=== PATIENT | male | born 1940 | race Caucasian/White ===

== ENCOUNTER → 2017-05-05 | Outpatient (CLI) | payer OTHER, MEDICARE ==
[~2017-05-05] MED LIST: AMLO5 PO; ASPI81CH PO; B Complete1 EACH PO; CHOL10002; DIPH50 PO; DIPY75 PO; FAMO20 PO; FISH1000 PO; GLIP10; GLIP10ER PO; GLIP5; LISI20 PO; LOSHYD100 PO; METF500; METF500 PO; METO50ER; OMEP20ER PO; PRED20 PO; PSEU30; SUDOGEST; TAMS.4ER PO; TEMA30 PO
== END | disposition home or self-care (01) ==
LOC: LAB 17:33
DX: L01.09 Other impetigo (principal)
CPT/HCPCS: 87070; 87205

== ENCOUNTER → 2020-01-15 | Outpatient (CLI) | payer MEDICARE, BC | END | disposition home or self-care (01) | LOC: LAB SHORT 10:54 → LAB 10:54 | DX: L03.211 Cellulitis of face (principal) | CPT/HCPCS: 87070; 87077; 87186; 87205 ==

== ENCOUNTER 2020-05-22 08:43 | Inpatient (IN) | payer MEDICARE, BC ==
[~2020-05-22] VITALS: Ht 180.3 cm; Wt 102.1 kg
[2020-05-22] MEDS ORDERED: ASPIR 8181 M1 PO (09:07)
[2020-05-22] MEDS ORDERED: AMLO5 PO (09:09)
[2020-05-22] MEDS ORDERED: CLOP75 PO (09:09)
[2020-05-22] MEDS ORDERED: PIOG15 PO (09:10)
[2020-05-22] MEDS ORDERED: PSEU120ER PO (09:11)
[2020-05-22] MEDS ORDERED: HYDSUL200 PO (09:13)
[2020-05-22 09:38] LABS: BASOPHILS ABSOLUTE AUTO 0.03 K/mm3 (0.00-0.23); BASOPHILS PERCENT AUTO 0 % (0-2); EOSINOPHILS ABSOLUTE AUTO 0.07 K/mm3 (0.00-0.68); EOSINOPHILS PERCENT AUTO 1 % (0-6); Hematocrit 33.1 % (37.0-53.0); Hemoglobin 10.9 g/dL (13.5-17.5); IMMATURE GRAN ABSOLUTE AUTO 0.04 K/mm3 (0.00-0.10); IMMATURE GRAN PERCENT AUTO 0 % (0-1); LYMPHOCYTES ABSOLUTE AUTO 0.55 K/mm3 (0.84-5.20); LYMPHOCYTES PERCENT AUTO 5 % (21-46); MONOCYTES ABSOLUTE AUTO 0.95 K/mm3 (0.16-1.47); MONOCYTES PERCENT AUTO 9 % (4-13); Mean Corpuscular HGB 29.5 pg (26.0-34.0); Mean Corpuscular HGB Conc 32.9 g/dL (31.5-36.5); Mean Corpuscular Volume 90 fL (80-100); Mean Platelet Volume 10.6 fL (9.1-12.4); NEUTROPHILS ABSOLUTE AUTO 9.57 K/mm3 (1.96-9.15); NEUTROPHILS PERCENT AUTO 85 % (41-73); Platelet Count 232 K/mm3 (150-400); RDW Coefficient Variation 15.7 % (11.7-14.2); RDW Standard Deviation 51.8 fL (35.1-46.3); White Blood Cell Count 11.21 K/mm3 (4.00-11.30)
[2020-05-22 09:48] LABS: Albumin, Blood 3.1 g/dL (3.4-5.0); Albumin/Globulin Ratio 0.7 (0.8-1.8); Bilirubin, Total 0.9 mg/dL (0.1-1.0); Calcium, Blood 8.9 mg/dL (8.5-10.1); Creatinine, Blood 6.3 mg/dL (0.60-1.20); Globulin, Blood 4.3 g/dL (2.2-4.0); Potassium, Blood 5.2 mmol/L (3.5-5.5); Total Protein, Blood 7.4 g/dL (6.4-8.2)
[2020-05-22 09:55] LABS: Source, Urine Clean Catch
[2020-05-22 10:28] LABS: Appearance, Urine Turbid (Clear); Bilirubin, Urine Neg (Neg); Blood, Urine 5+ (Neg); Color, Urine Brown (P-Yellow); Glucose Qualitative, Urine Neg (Neg); Ketones, Urine 1+ (Neg); Leukocyte Esterase, Urine 1+ (Neg); Nitrite, Urine Pos (Neg); Protein, Urine 4+ (Neg); Specific Gravity, Urine 1.015 (1.003-1.022); Urobilinogen, Urine NORM (Normal); pH, Urine 6.5 (5.0-8.0)
[2020-05-22 10:52] LABS: Bacteria Rare /hpf; Red Blood Cells, Urine TNTC /hpf (0-2); Squamous Epithelial Cells Few /hpf (Few)
[2020-05-22] MEDS ORDERED: PSEUDOEPHEDRINE30 M3 PO (12:11)
[2020-05-22] MEDS ORDERED: MINOCYCLINE HC PO (12:12)
[2020-05-22] MEDS ORDERED: ACTOS30 MG PO (12:12)
[2020-05-22] MEDS ORDERED: TEMAZEPAM PO (12:14)
[2020-05-22] MEDS ORDERED: LOSARTAN POTAS100 M1 PO (12:14)
[2020-05-22] MEDS ORDERED: Hydroxychloroq200 MG PO (12:14)
[2020-05-22] MEDS ORDERED: METFORMIN HCL1000 M6 PO (12:15)
[2020-05-22 12:18] LABS: Hematocrit 33.4 % (37.0-53.0)
--- NOTE | 2020-05-22 16:41 | NUR ---
PT AOX4; CALLS APPROPRIATELY. PT ADMITTED FOR ACUTE ON CHRONIC KIDNEY INJURY. PT CAME IN WITH WEAKNESS, ABD PAIN, NAUSEA, ABD DISTENTION, DECREASED URINE OUTPUT, CONSTIPATION X5 DAYS, AND BILAT LOWER EDEMA. PT HAD A ABD CT, AND SHOWED 7L OF URINE. [place] PLACED ON ED- 6300 ML URINE OUT PER KIARA SCHMID. PT LIVES WITH AT HOME. PT STATED HE HAS BEEN HAVING A HARD TIME URINATING FOR THE PAST WEEK, AND HE HAS SEEN DR DERAS 5DAYS AGO. 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 HE STATED THAT THE DOCTOR TOLD HIM THAT DIABETES IS PROBABLY CAUSING HIM TO HAVE KIDNEY PROBLEMS. PT DENIES PAIN ON ABD OR ANYWHEERE. PT C/O GENERALIZED WEAKNESS; BED ALARM IS ON AND ENCOURAGE THE USE OF CALL LIGHT. PT IS 1-2 P ASSIST TO BSC. PT IS RECEIVING CONT NS FLUID @125 ML/HR. PT ORIENTED IN THE ROOM AND CALL LIGHT WITHIN REACH
--- NOTE | 2020-05-22 18:34 | NUR ---
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 SHE WAS WONDERING IF WE COULD ADDRESS THIS TO THE DOCTOR. PT DENIES ANY CP OR PRESSURE. NO APPARENT DISTRESS AT THIS TIME.
[2020-05-22 19:59] LABS: Albumin, Blood 2.8 g/dL (3.4-5.0); Anion Gap 9 mmol/L (6-16); Blood Urea Nitrogen 75 mg/dL (8-24); Bun/Creatinine Ratio 15.8 (12.0-20.0); CO2, Blood 21 mmol/L (21-32); Calcium, Blood 8.7 mg/dL (8.5-10.1); Chloride, Blood 108 mmol/L (98-108); Creatinine, Blood 4.75 mg/dL (0.60-1.20); Glomerular Filtration Rate 13 (60-); Glucose, Blood 198 mg/dL (70-99); Phosphorus, Blood 4.6 mg/dL (2.5-4.9); Potassium, Blood 4.4 mmol/L (3.5-5.5); Sodium, Blood 138 mmol/L (136-145)
[2020-05-23 05:08] LABS: BASOPHILS ABSOLUTE AUTO 0.03 K/mm3 (0.00-0.23); BASOPHILS PERCENT AUTO 0 % (0-2); EOSINOPHILS ABSOLUTE AUTO 0.35 K/mm3 (0.00-0.68); EOSINOPHILS PERCENT AUTO 4 % (0-6); Hematocrit 28.8 % (37.0-53.0); Hemoglobin 9.5 g/dL (13.5-17.5); IMMATURE GRAN ABSOLUTE AUTO 0.02 K/mm3 (0.00-0.10); IMMATURE GRAN PERCENT AUTO 0 % (0-1); LYMPHOCYTES ABSOLUTE AUTO 0.87 K/mm3 (0.84-5.20); LYMPHOCYTES PERCENT AUTO 10 % (21-46); MONOCYTES ABSOLUTE AUTO 1.02 K/mm3 (0.16-1.47); MONOCYTES PERCENT AUTO 11 % (4-13); Mean Corpuscular HGB 29.5 pg (26.0-34.0); Mean Corpuscular Volume 89 fL (80-100); Mean Platelet Volume 10.4 fL (9.1-12.4); NEUTROPHILS ABSOLUTE AUTO 6.82 K/mm3 (1.96-9.15); NEUTROPHILS PERCENT AUTO 75 % (41-73); Platelet Count 195 K/mm3 (150-400); RDW Coefficient Variation 15.4 % (11.7-14.2); RDW Standard Deviation 50.8 fL (35.1-46.3); Red Blood Cell Count 3.22 M/mm3 (4.30-5.90); White Blood Cell Count 9.11 K/mm3 (4.00-11.30)
--- NOTE | 2020-05-23 05:36 | NUR ---
SHIFT SUMMARY: PATIENT IS A&OX3, VSS, UP TO THE BATHROOM WITH ASSIST OF TWO AND FWW MULTIPLE TIMES FOR BM'S, LARGE AMTS OF FLATUS. STAS IS PATENT, NO REPORTS OF PAIN. PATIENT WAS GIVEN SCHEDULED RESTORIL FOR SLEEP AND HAD DIFFICULTY FOLLOWING DIRECTS WHEN AMB. TO BATHROOM. BED ALARM IS ON FOR SAFETY.
[2020-05-23 05:43] LABS: Albumin, Blood 2.7 g/dL (3.4-5.0); Albumin/Globulin Ratio 0.8 (0.8-1.8); Bilirubin, Total 0.4 mg/dL (0.1-1.0); Bun/Creatinine Ratio 17.9 (12.0-20.0); Calcium, Blood 8.1 mg/dL (8.5-10.1); Creatinine, Blood 3.52 mg/dL (0.60-1.20); Globulin, Blood 3.5 g/dL (2.2-4.0); Magnesium, Blood 2.5 mg/dL (1.6-2.4); Potassium, Blood 4.2 mmol/L (3.5-5.5); Total Protein, Blood 6.2 g/dL (6.4-8.2)
--- NOTE | 2020-05-23 17:02 | NUR ---
HE JUST WOKE UP FROM A NAP IRRITABLE AND PAINFUL. HE WAS FED UP WITH THE BED AND THE CHAIR. HE DIDN'T WANT TO AMBULATE IN THE SUERO BUT DID AMBULATE SEVERAL CIRCLES IN THE ROOM WITH WALKER GAITBELT AND 1 ASSIST. HE HAD BEEN SLIGHTLY INCONTINENT OF STOOL IN THE BED BUT COULDN'T DO ANYMORE IN THE TOILET. HE WAS WASHED. HE ALSO WASHED HIS FACE AT THE SINK AND COMBED HIS HAIR AGAIN. HE IS DISTRESSED BY UNKEPT HAIR. HE CMPLAINS SO MUCH OF PAIN AT HIS RECTUM THAT I LOOKED AGAIN. NOTHING WAS SEEN WHEN HE WAS STANDING UP AND BENDING OVER OR DURING HIS BEDBATH BUT I HAD HIM LAY ON HIS R SIDE AND SPREAD HIS CHEEKS APART,WHICH ALSO HURT HIM AND SAW AN ULCERATION LESS THAN DIME SIZE ON HIS INNER R BUTTOCK NEAR THE ANUS. I APPLIED THE BLUE TOP CREAM. IT SOOTHES HIM FOR AWHILE. HE STILL DOES NOT USE HIS CALL LIGHT OR ALWAYS FOLLOW DIRECTIONS. HE HAS ANXIETY AND MAYBE SOME MINOR CONFUSION. [place] PATENT WITH GOOD URINE OUTPUT. SCD'S REFUSED. HE SAYS THEY ARE TOO HOT AND IT BOTHERS HIS NEUROPATHY IN HIS FEET. TEMP 100.1 THIS AFTERNOON DURING HIS NAP. HE ALWAYS WEARS HIS CPAP WHEN HE IS IN BED. NO ALARMS ON CONTINUOUS BIOX. HIS VISITED FOR ABOUT 40 MIN.
[2020-05-24 04:55] LABS: BASOPHILS ABSOLUTE AUTO 0.04 K/mm3 (0.00-0.23); BASOPHILS PERCENT AUTO 1 % (0-2); EOSINOPHILS ABSOLUTE AUTO 0.31 K/mm3 (0.00-0.68); EOSINOPHILS PERCENT AUTO 4 % (0-6); Hemoglobin 9.6 g/dL (13.5-17.5); IMMATURE GRAN ABSOLUTE AUTO 0.02 K/mm3 (0.00-0.10); IMMATURE GRAN PERCENT AUTO 0 % (0-1); LYMPHOCYTES ABSOLUTE AUTO 1.05 K/mm3 (0.84-5.20); LYMPHOCYTES PERCENT AUTO 12 % (21-46); MONOCYTES ABSOLUTE AUTO 0.93 K/mm3 (0.16-1.47); MONOCYTES PERCENT AUTO 11 % (4-13); Mean Corpuscular HGB 29.2 pg (26.0-34.0); Mean Corpuscular HGB Conc 33.1 g/dL (31.5-36.5); Mean Corpuscular Volume 88 fL (80-100); NEUTROPHILS ABSOLUTE AUTO 6.15 K/mm3 (1.96-9.15); NEUTROPHILS PERCENT AUTO 72 % (41-73); Platelet Count 210 K/mm3 (150-400); RDW Coefficient Variation 15.4 % (11.7-14.2); Red Blood Cell Count 3.29 M/mm3 (4.30-5.90)
[2020-05-24 05:21] LABS: Albumin, Blood 2.6 g/dL (3.4-5.0); Albumin/Globulin Ratio 0.7 (0.8-1.8); Bilirubin, Total 0.6 mg/dL (0.1-1.0); Bun/Creatinine Ratio 19.9 (12.0-20.0); Calcium, Blood 8.1 mg/dL (8.5-10.1); Creatinine, Blood 2.11 mg/dL (0.60-1.20); Globulin, Blood 3.7 g/dL (2.2-4.0); Potassium, Blood 4.2 mmol/L (3.5-5.5); Total Protein, Blood 6.3 g/dL (6.4-8.2)
--- NOTE | 2020-05-24 06:15 | NUR ---
SHIFT SUMMARY: PATIENT IS A&OX4 BUT FORGETFULL AT TIMES. DOES NOT FOLLOW DIRECTIONS AT TIMES DURING TRANFER TO BATHROOM. STAS IS PATENT FOR YELL URINE AND ARE VSS. CPAP IS WORN DURING SLEEP, NO DESTATURATIONS ARE OBSERVED DURING SLEEP. PATIENT REQUESTED RESTORIL FOR SLEEP, MEDICATION WAS GIVE WITH GOOD EFFECT.
--- NOTE | 2020-05-24 08:24 | NUR ---
WAS NOTIFIED THAT PT WOULD LIKE TO LEAVE AMA. NOTIFIED ZA, FIELD SERVICE POULTRY TECHNICIAN WHO SAID THAT SHE WOULD NOTIFY TO GET THE PROCESS STARTED.
[2020-05-24] MEDS ORDERED: SENN187 PO (11:27)
--- NOTE | 2020-05-24 13:06 | NUR ---
DISCHARGE SUMMARY PT A/O X3 AND HAS MOMENTS OF CONFUSION. PT ADMITTED FROM ACUTE ON CHRONIC KIDNEY INJURY. MCCLELLAND WAS PLACED IN THE ED AFTER IT WAS FOUND THAT THE PT WAS RETAINING OVER 7 LITERS OF URINE IN HIS BLADDER. PT VERY ANXIOUS AND EAGER TO LEAVE DURING THE SHIFT. WAS CONVINCED NOT TO LEAVE AMA. WAS SEEN BY DR. CHANCE AND INSTRUCTED TO LEAVE IN [place] AND TO FOLLOW UP WITH UROLOGY. APPOINTMENT MADE WITH UROLOGY IN [place]. EDUCATED PROVIDED TO PT AND REGARDING CATHETER CARE. LEG BAG AND REPLACEMENT BAG GIVEN. IV DC'D WNL. WENT HOME WITH .
== END 2020-05-24 12:51 | disposition home or self-care (01) | DRG 683 ==
LOC: ER 08:43 → MEDS 11:51 → ENPENDDIS 05-24 11:05 → MEDS 05-24 12:51
PROVIDERS: Internal Medicine; Nurse Practitioner Acute Care; Physician Assistant; ADMIT Internal Medicine
DX: N17.9 Acute kidney failure, unspecified (principal); N13.8 Other obstructive and reflux uropathy; I13.0 Hypertensive heart and chronic kidney disease with heart failure and stage 1 through stage 4 chronic kidney disease, or unspecified chronic kidney disease; Z20.822 Contact with and (suspected) exposure to COVID-19; N40.1 Benign prostatic hyperplasia with lower urinary tract symptoms; E11.22 Type 2 diabetes mellitus with diabetic chronic kidney disease; N18.30 Chronic kidney disease, stage 3 unspecified; I50.9 Heart failure, unspecified; D64.9 Anemia, unspecified; M06.9 Rheumatoid arthritis, unspecified; Z86.73 Personal history of transient ischemic attack (TIA), and cerebral infarction without residual deficits; K22.70 Barrett's esophagus without dysplasia; G47.9 Sleep disorder, unspecified; K59.00 Constipation, unspecified; N13.1 Hydronephrosis with ureteral stricture, not elsewhere classified
CPT/HCPCS: 36415; 51702; 74176; 80053; 80069; 81001; 82947; 83690; 83735; 84100; 85014; 85018; 85025; 87086; 93005; 93010; 94762; 96361-59; 96365-59; 99285-25; A9270; J0696; J7030

== ENCOUNTER 2020-06-01 16:28 | Emergency (ER) | payer MEDICARE, BC ==
[~2020-06-01] VITALS: Ht 180.3 cm; Wt 81.7 kg
[~2020-06-01 16:28] MED LIST changes: +ACTOS30 MG PO; +ASPIR 8181 M1 PO; +CLOP75 PO; +HYDSUL200 PO; +Hydroxychloroq200 MG PO; +LOSARTAN POTAS100 M1 PO; +METFORMIN HCL1000 M6 PO; +MINOCYCLINE HC PO; +PIOG15 PO; +PSEU120ER PO; +PSEUDOEPHEDRINE30 M3 PO; +SENN187 PO; +TEMAZEPAM PO
[2020-06-01] MEDS ORDERED: TEMAZEPAM PO (17:11)
[2020-06-01] MEDS ORDERED: LOSARTAN POTAS100 M1 PO (17:11)
[2020-06-01] MEDS ORDERED: MINOCYCLINE HC PO (17:12)
[2020-06-01] MEDS ORDERED: ACTOS30 MG PO (17:12)
[2020-06-01 18:11] LABS: Albumin, Blood 3.2 g/dL (3.4-5.0); Albumin/Globulin Ratio 0.8 (0.8-1.8); Bilirubin, Total 0.2 mg/dL (0.1-1.0); Bun/Creatinine Ratio 25.2 (12.0-20.0); Calcium, Blood 9.2 mg/dL (8.5-10.1); Creatinine, Blood 1.59 mg/dL (0.60-1.20); Globulin, Blood 4.1 g/dL (2.2-4.0); Potassium, Blood 4.3 mmol/L (3.5-5.5); Total Protein, Blood 7.3 g/dL (6.4-8.2)
[2020-06-01] MEDS ORDERED: GLIP10 PO (18:38)
[2020-06-01 18:42] LABS: BASOPHILS ABSOLUTE AUTO 0.05 K/mm3 (0.00-0.23); BASOPHILS PERCENT AUTO 1 % (0-2); EOSINOPHILS ABSOLUTE AUTO 0.34 K/mm3 (0.00-0.68); EOSINOPHILS PERCENT AUTO 4 % (0-6); Hematocrit 35.3 % (37.0-53.0); Hemoglobin 11.6 g/dL (13.5-17.5); IMMATURE GRAN ABSOLUTE AUTO 0.04 K/mm3 (0.00-0.10); IMMATURE GRAN PERCENT AUTO 1 % (0-1); LYMPHOCYTES ABSOLUTE AUTO 1.36 K/mm3 (0.84-5.20); LYMPHOCYTES PERCENT AUTO 16 % (21-46); MONOCYTES ABSOLUTE AUTO 0.73 K/mm3 (0.16-1.47); MONOCYTES PERCENT AUTO 9 % (4-13); Mean Corpuscular HGB 28.8 pg (26.0-34.0); Mean Corpuscular HGB Conc 32.9 g/dL (31.5-36.5); Mean Corpuscular Volume 88 fL (80-100); Mean Platelet Volume 8.9 fL (9.1-12.4); NEUTROPHILS ABSOLUTE AUTO 6.05 K/mm3 (1.96-9.15); NEUTROPHILS PERCENT AUTO 71 % (41-73); Platelet Count 361 K/mm3 (150-400); RDW Coefficient Variation 14.6 % (11.7-14.2); RDW Standard Deviation 47.6 fL (35.1-46.3); Red Blood Cell Count 4.03 M/mm3 (4.30-5.90); White Blood Cell Count 8.57 K/mm3 (4.00-11.30)
[2020-06-01 19:01] LABS: International Normalized Ratio 1.02; Prothrombin Time Results 10.9 Sec (9.7-11.5)
[2020-06-01 20:30] LABS: Influenza A, PCR NEGATIVE (NEGATIVE); Influenza B, PCR NEGATIVE (NEGATIVE); Resp Syncytial Virus, PCR NEGATIVE (NEGATIVE); SARS-Cov-2 (COVID-19) PCR, MMC NEGATIVE (NEGATIVE)
[2020-06-01 21:15] LABS: Calcium, Ionized (POC) 1.05 mmol/L (1.10-1.46); Chloride (POC) 108 mmol/L (98-108); Creatinine (POC) 1.5 mg/dL (0.8-1.3); Glucose (ISTAT POC) 231 mg/dL (70-99); Hemoglobin (POC) 9.2 g/dL (13.5-17.5); Sodium (POC) 138 mmol/L (135-148); Total CO2 (POC) 22 mmol/L (21-32)
== END 2020-06-01 21:50 | disposition short-term general hospital (02) ==
LOC: ER 16:28
PROVIDERS: Emergency Medicine
DX: K92.2 Gastrointestinal hemorrhage, unspecified (principal); R56.9 Unspecified convulsions; T83.098A Other mechanical complication of other urinary catheter, initial encounter; I21.4 Non-ST elevation (NSTEMI) myocardial infarction; R00.1 Bradycardia, unspecified; R94.31 Abnormal electrocardiogram [ECG] [EKG]; I44.0 Atrioventricular block, first degree; D64.9 Anemia, unspecified; R33.9 Retention of urine, unspecified; I10 Essential (primary) hypertension; E11.9 Type 2 diabetes mellitus without complications; Z79.82 Long term (current) use of aspirin; Z79.84 Long term (current) use of oral hypoglycemic drugs; Z79.02 Long term (current) use of antithrombotics/antiplatelets; Z79.899 Other long term (current) drug therapy; Z20.822 Contact with and (suspected) exposure to COVID-19; Z86.73 Personal history of transient ischemic attack (TIA), and cerebral infarction without residual deficits; Y84.6 Urinary catheterization as the cause of abnormal reaction of the patient, or of later complication, without mention of misadventure at the time of the procedure
CPT/HCPCS: 0241U; 36415; 36430; 80047; 80053; 84484; 85014; 85025; 85610; 85730; 86850; 86900; 86901; 86923; 93005; 93010; 96361; 96365; 96375; 99283-25; 99285; J1953; J2060; J7030; P9016; P9035

== ENCOUNTER → 2020-12-31 | Outpatient (CLI) | payer MEDICARE, BC ==
[~2020-12-31] MED LIST changes: +GLIP10 PO
== END ==
LOC: LAB 08:45 → LAB SHORT 08:45
DX: L08.0 Pyoderma (principal)
CPT/HCPCS: 87070; 87205